=== PATIENT | male | born 1990 | race Two or more races ===

== ENCOUNTER 2020-04-17 18:38 | Emergency (ER) | payer SELFPAY ==
[~2020-04-17] VITALS: Ht 170.2 cm; Wt 76.2 kg
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
--- NOTE | 2020-04-17 18:58 | NUR ---
LISANDRA POSADA AT BEDSIDE FOR EVAL.
[2020-04-17 19:27] LABS: BASOPHILS # (AUTO) 0.1 /CMM (0.0-0.2); BASOPHILS % (AUTO) 1.3 % (0.0-2.0); HEMATOCRIT 38 % (39-51); HEMOGLOBIN 11.9 g/dL (13.5-17.5); LYMPHOCYTES # (AUTO) 1.3 /CMM (0.8-4.8); MEAN CORPUSCULAR HGB CONC 32 g/dl (31.0-36.0); MEAN CORPUSCULAR VOLUME 72 fL (80-96); MONOCYTES # (AUTO) 0.4 /CMM (0.1-1.30); MONOCYTES % (AUTO) 5.1 % (2.0-12.0); NEUTROPHILS # (AUTO) 5.7 /CMM (1.8-8.9); NEUTROPHILS % (AUTO) 76.6 % (43.0-81.0); PLATELET COUNT (AUTO) 494 /CMM (150-450); RED BLOOD CELL COUNT(AUTO) 5.25 MIL/uL (4.5-6.0); WHITE BLOOD COUNT (AUTO) 7.5 K/uL (4.3-11.0)
[2020-04-17] MEDS ORDERED: OLANZAPINE 5 MG TABLET PO ONE (19:30)
[2020-04-17 19:42] LABS: ALANINE AMINOTRANSFERASE 42 U/L (12-78); ALBUMIN 4.3 g/dL (3.4-5.0); ALCOHOL, BLOOD 268 mg/dL (0-0); ALKALINE PHOSPHATASE 72 U/L (46-116); ASPARTATE AMINOTRANSFERASE 65 U/L (15-37); BILIRUBIN,DIRECT 0.2 mg/dL (0.0-0.2); BILIRUBIN,TOTAL 0.5 mg/dL (0.2-1.0); CARBON DIOXIDE 20 mmol/L (21-32); CHLORIDE 103 mmol/L (98-107); CREATININE 0.9 mg/dL (0.6-1.3); GLUCOSE 108 mg/dL (74-106); POTASSIUM 3.9 mmol/L (3.5-5.1); SODIUM SERUM 140 mmol/L (136-145); TOTAL PROTEIN, SERUM 8.5 g/dL (6.4-8.2); UREA NITROGEN, BLOOD 8 mg/dL (7-18)
[2020-04-17 19:47] LABS: ACETAMINOPHEN < 2 ug/ml (10-30)
[2020-04-17] MEDS ORDERED: OLANZAPINE 5 MG TABLET ONE (20:09)
[2020-04-17 20:11] LABS: LYMPHOCYTES % (MANUAL) 20 % (16-48); MONOCYTES % (MANUAL) 5 % (0-11.0); NEUTROPHILS % (MANUAL) 75 (42-76)
[2020-04-17 20:53] LABS: APPEARANCE,URINE Clear (CLEAR); BILIRUBIN,URINE Negative (NEGATIVE); BLOOD, URINE Moderate Ery/uL (NEGATIVE); COLOR,URINE Yellow (YELLOW); LEUKOCYTE ESTERASE ,URINE Negative (NEGATIVE); NITRITE, URINE Negative (NEGATIVE); PROTEIN,URINE 100 mg/dl (NEGATIVE); UGLUCOSE Negative (NEGATIVE); UROBILINOGEN,URINE 0.2 EU/dL (0.2)
[2020-04-17 20:56] LABS: BACTERIA,URINE Rare /HPF (None Seen); SQUAMOUS EPITHELIAL CELL,UR Few /HPF (None Seen); WBC,URINE NONE SEEN /HPF (0-3)
[2020-04-17] MEDS ORDERED: HALOPERIDOL LACTATE INJ 5 MG/ML VIAL IM ONE (21:00)
[2020-04-17] MEDS ORDERED: diphenhydrAMINE HCL 50 MG/ML VIAL IM ONE (21:00)
--- NOTE | 2020-04-17 21:37 | NUR ---
pt resting comfortable, sitter within line of sight.
--- NOTE | 2020-04-17 21:50 | NUR ---
SPOKE TO THE PT REGARDING PLAN OF CARE. PT IS NOW CALM. VSS. NO ACUTE DISTRESS NOTED.
--- NOTE | 2020-04-18 03:38 | NUR ---
PT RESTING COMFORTABLY IN BED. VSS. SITTER AT BEDSDIE FOR SAFETY.
--- NOTE | 2020-04-18 04:16 | NUR ---
NORIS SCHAFER PAGED PER [facility] STEVENSON ORDER.
--- NOTE | 2020-04-18 04:24 | NUR ---
PT AWAKE IN BED, VSS.
--- NOTE | 2020-04-18 04:30 | NUR ---
PT DENIES SI/HI
--- NOTE | 2020-04-18 05:11 | NUR ---
[facility] HERE FOR PSYCH EVAL.
[2020-04-18] MEDS ORDERED: LORAZEPAM 1 MG TABLET ONE (05:43)
[2020-04-18] MEDS ORDERED: LORAZEPAM 1 MG TABLET PO ONE (06:00)
--- NOTE | 2020-04-18 06:00 | NUR ---
Lorenza lagunas in ED - 04/18/20 at 0604 by BERNABE Patient discharged to home in stable condition. Written and verbal after care instructions given. Patient verbalizes understanding of instruction.pt. ambulatory with a steady gait
--- NOTE | 2020-04-18 06:03 | NUR ---
Patient given written and verbal discharge instructions. Patient verbalizes understanding of instructions. Patient is ambulatory with steady gait. Refuses offer of half-way placement. Patient given list of available shelters in surrounding area.
[2020-04-18 06:06] VITALS: BP 123/92
== END 2020-04-18 06:08 | disposition home or self-care (01) ==
LOC: ER 20:35
DX: R45.851 Suicidal ideations (principal); F10.129 Alcohol abuse with intoxication, unspecified; R45.1 Restlessness and agitation; F12.10 Cannabis abuse, uncomplicated; F31.9 Bipolar disorder, unspecified; F43.21 Adjustment disorder with depressed mood; D50.9 Iron deficiency anemia, unspecified; D47.3 Essential (hemorrhagic) thrombocythemia; R31.9 Hematuria, unspecified; F20.9 Schizophrenia, unspecified; R00.0 Tachycardia, unspecified; Y90.8 Blood alcohol level of 240 mg/100 ml or more; Z04.6 Encounter for general psychiatric examination, requested by authority; Z72.0 Tobacco use; Z87.442 Personal history of urinary calculi
CPT/HCPCS: 36415; 80048-TC; 80076-TC; 81000-TC; 85025-TC; G0480